=== PATIENT | male | born 1990 | race Caucasian/White ===

== ENCOUNTER 2019-05-03 16:15 | Emergency (ER) | payer OTHER ==
--- NOTE | 2019-05-03 16:34 | ER Report ---
History and Physical Time Seen By MD: 16:30 Hx. of Stated Complaint: patient hit left big toe with an axe while chopping firewood. bleeding controlled. Last tetnus 3 weeks ago HPI/ROS CHIEF COMPLAINT: Toe injury HISTORY OF PRESENT ILLNESS: Otherwise of a 28-year-old male presents with an injury to his left foot great toe. Patient was chopping wood and missed the wood and hit himself on the top of his great toe. Patient was wearing boots at the time. Patient has an obvious laceration to the great toe. Patient has no additional complaints REVIEW OF SYSTEMS: Respiratory: No cough, no dyspnea. Cardiovascular: No chest pain, no palpitations. Gastrointestinal: No vomiting, no abdominal pain. Musculoskeletal: No back pain. Remainder of the 14 system rev: Yes Allergies: Coded Allergies: No Known Drug Allergies (Unverified , 09/30/12) Home Meds Reported Medications [None] No Conflict Check 09/30/12 Reviewed Nurses Notes: Yes Old Medical Records Reviewed: Yes Hx Smoking: Yes Hx Substance Use Disorder: No Hx Alcohol Use: Yes (OCC) Constitutional Vital Sign - Last 24 Hours 05/03/19 16:20 Temp 97.9 Pulse 67 Resp 16 B/P (MAP) 122/82 Pulse Ox 96 O2 Delivery Room Air Physical Exam General appearance: Alert no distress. Respiratory: Chest is non tender, lungs are clear to auscultation. Cardiac: Regular rate and rhythm [ ] Great toe left foot examination patient has a 4-5 cm linear laceration from the medial aspect of the great toe just medial to the nail bed on angulate to the middle aspect of the dorsal part of the great toe patient has flexion neurovascularly intact DIFFERENTIAL DIAGNOSIS: After history and physical exam differential diagnosis was considered for laceration possible fracture of the great toe Medical Decision Making ED Course/Re-evaluation ED Course 80 course 28-year-old male who cut into his great toe of his left foot with an ax through a boot patient x-rays demonstrated no fractures dislocation subluxation put in 6 interrupted sutures of 4-0 nylon patient tolerated well after digital block Neurovascularly intact so dressing applied patient tolerated well Patient will be discharged with primary care follow-up on by mouth antibiotics for a laceration to the great toe left foot Decision to Disposition Date: May 03, 2019 Decision to Disposition Time: 17:40 Depart Departure Latest Vital Signs Vital Signs Date Time Temp Pulse Resp B/P (MAP) Pulse Ox O2 Delivery O2 Flow Rate FiO2 05/03/19 16:20 97.9 67 16 122/82 96 Room Air Impression: Primary Impression: Laceration Condition: Improved Disposition: HOME OR SELF-CARE Referrals: [facility] 5 Days New Scripts Amoxicillin/Pot Clav 875-125 Mg Tab (AUGMENTIN 875-125 TABLET) 1 Each Tablet 1 TAB PO Q12H for 7 Days, #14 TAB Prov: JOHANN MENDOZA MD 05/03/19 Patient Instructions: Acute Wound Care (DC) JOHANN MENDOZA MD May 03, 2019 16:34
[2019-05-03] MEDS ORDERED: APAP/HYDROCODONE 325/7.5 TAB PO ONE (16:50)
--- NOTE | 2019-05-03 17:18 | RADIOLOGY IMAGING REPORT ---
FACILITY: [facility] [place] PATIENT NAME: Dwaine Perez : 1990 MR: [id number] V: [id number] EXAM DATE: ORDERING PHYSICIAN: JOHANN MENDOZA TECHNOLOGIST: Location: [facility] Patient: Dwaine Perez : 1990 Visit/Account:[id number] Date of Sevice: 05/03/2019 FOOT 3 VIEW LEFT COMPARISONS: None. ADDITIONAL PERTINENT HISTORY: Injury to great toe. FINDINGS: Osseous structures: Negative. Joint spaces: Negative. Surrounding soft tissues: Negative. IMPRESSION: Normal views of the left foot Report Dictated By: Krish Bhatt MD at 05/03/2019 5:11 PM Report E-Signed By: Krish Bhatt MD at 05/03/2019 5:12 PM WSN:[email or web address]
[2019-05-03] MEDS ORDERED: CEPHALEXIN MONO 500 MG CAP PO ONE (17:40)
[2019-05-03] MEDS ORDERED: AMOX-559 PO (17:44)
[2019-05-03 17:55] VITALS: BP 105/52
== END 2019-05-03 17:57 | disposition home or self-care (01) ==
LOC: ER 16:25
DX: S91.112A Laceration without foreign body of left great toe without damage to nail, initial encounter (principal); W27.0XXA Contact with workbench tool, initial encounter
CPT/HCPCS: 99283